=== PATIENT | male | born 1985 | race Caucasian/White ===

== ENCOUNTER 2019-12-12 07:34 | Emergency (ER) | payer BC, MEDICAID ==
[~2019-12-12] VITALS: Ht 172.7 cm; Wt 97.5 kg
[~2019-12-12 07:34] MED LIST: ASPI-862; DEXT1POW2; VIT500TA7
[2019-12-12 07:39] VITALS: BP_SYST 152
[2019-12-12 08:15] LABS: BASOPHILS # (AUTO) 0.1 K/uL (0.0-0.2); BASOPHILS % (AUTO) 0.8 % (0.0-2.0); EOSINOPHILS # (AUTO) 0.2 K/uL (0.0-0.4); EOSINOPHILS % (AUTO) 1.6 % (0.0-4.0); HEMATOCRIT 47.8 % (36-54); HEMOGLOBIN 16.7 g/dL (14.0-18.0); LYMPHOCYTES # (AUTO) 3.4 K/uL (1.0-5.5); LYMPHOCYTES % (AUTO) 36.2 % (20.5-51.5); MEAN CORPUSCULAR HEMOGLOBIN 30 pg (27-31); MEAN CORPUSCULAR HGB CONC 35 % (32-36); MEAN CORPUSCULAR VOLUME 87 fL (79.0-98.0); MONOCYTES # (AUTO) 0.6 K/uL (0.0-1.0); MONOCYTES % (AUTO) 6.4 % (1.7-9.3); NEUTROPHILS # (AUTO) 5.2 K/uL (1.8-7.7); PLATELET COUNT (AUTO) 322 K/uL (130-430); RED BLOOD CELL COUNT(AUTO) 5.48 MIL/uL (4.2-6.2); RED CELL DISTRIBUTION WIDTH 13.2 % (9.0-15.0); WHITE BLOOD COUNT (AUTO) 9.4 K/uL (4.8-10.8)
[2019-12-12 08:27] LABS: ANION GAP 9 (5-15); CHLORIDE 101 mmol/L (98-107); CREATININE 1.43 mg/dL (0.55-1.30); GLUCOSE 125 mg/dL (70-99); POTASSIUM 3.3 mmol/L (3.5-5.1); SODIUM SERUM 135 mmol/L (136-145); UREA NITROGEN, BLOOD 15 mg/dL (8-21)
[2019-12-12 08:33] LABS: ALANINE AMINOTRANSFERASE 52 U/L (12-78); ALBUMIN 4.2 g/dL (3.4-4.8); ASPARTATE AMINOTRANSFERASE 28 U/L (10-37); TOTAL BILIRUBIN 0.9 mg/dL (0.0-1.0); URIC ACID 8.4 mg/dL (2.4-7.0)
[2019-12-12 08:42] LABS: GFR AFRICAN AMERICAN 72 mL/min (>90)
[2019-12-12 08:43] LABS: C-REACTIVE PROTEIN QUANT < 0.2 mg/dL (0-0.5)
[2019-12-12 08:47] LABS: PROTHROMBIN TIME 10.3 SECS (9.5-12.5)
[2019-12-12 09:22] LABS: ERYTHROCYTE SEDIMENTATION RATE 7 MM/HR (0-15)
[2019-12-12 09:52] VITALS: BP_SYST 152
== END 2019-12-12 09:52 | disposition home or self-care (01) ==
LOC: SED 07:34
DX: M25.561 Pain in right knee (principal); Z79.899 Other long term (current) drug therapy; Z79.82 Long term (current) use of aspirin
CPT/HCPCS: 36415; 73564; 80053; 84550-TC; 85025; 85610-TC; 85651-TC; 85730-TC; 86140; 99284

== ENCOUNTER 2020-11-22 09:02 | Emergency (ER) | payer MEDICAID ==
[~2020-11-22] VITALS: Ht 172.7 cm; Wt 86.2 kg
--- NOTE | 2020-11-22 09:05 | NUR ---
Patient to triage for evaluation. Side rails up.
--- NOTE | 2020-11-22 09:06 | NUR ---
ER Dr. Lei at bedside examining patient.
[2020-11-22 09:10] VITALS: BP_SYST 145
[2020-11-22] MEDS ORDERED: PENICILLIN G BENZATHINE 1.2 MMU/2 ML SYR IM ONE (09:15)
[2020-11-22] MEDS ORDERED: DOXY100C5 PO (09:16)
--- NOTE | 2020-11-22 09:30 | NUR ---
urine specimen collected and sent to lab
[2020-11-22 10:08] LABS: BILIRUBIN,URINE NEGATIVE (NEGATIVE); BLOOD, URINE NEGATIVE (NEGATIVE); CLARITY/URINE CLEAR (CLEAR); COLOR,URINE YELLOW (YELLOW); GLUCOSE,URINE NEGATIVE (NEGATIVE); KETONES,URINE NEGATIVE (NEGATIVE); LEUKOCYTE ESTERASE ,URINE NEGATIVE (NEGATIVE); NITRITE, URINE NEGATIVE (NEGATIVE); PH,URINE 5.5 (5.0-8.0); PROTEIN URINE NEGATIVE (NEGATIVE); UROBILINOGEN,URINE 0.2 (0.2-1.0)
--- NOTE | 2020-11-22 10:14 | NUR ---
medicated tolerated well.
[2020-11-22 10:28] VITALS: BP_SYST 145
--- NOTE | 2020-11-22 10:28 | NUR ---
Patient given written and verbal discharge instructions and verbalizes understanding. ER MD discussed with patient the results and treatment provided. Patient in stable condition. ID arm band removed. Rx of doxycyxline hyclate given. Patient educated on pain management and to follow up with PMD. Pain Scale 0. Opportunity for questions provided and answered. Medication side effect fact sheet provided.
== END 2020-11-22 10:28 | disposition home or self-care (01) ==
LOC: SED 09:02
DX: N48.5 Ulcer of penis (principal); Z79.899 Other long term (current) drug therapy
CPT/HCPCS: 36415; 81003; 86592; 87491; 87591; 96372; 99283; J0561

== ENCOUNTER 2021-03-20 13:01 | Emergency (ER) | payer MEDICAID, SELFPAY ==
[~2021-03-20] VITALS: Ht 172.7 cm; Wt 90.7 kg
[~2021-03-20 13:01] MED LIST changes: +DOXY100C5 PO
[2021-03-20 13:30] VITALS: BP_SYST 150
--- NOTE | 2021-03-20 13:30 | NUR ---
Pt. came in with cough, congestion and sore throat X 2 days.
--- NOTE | 2021-03-20 13:30 | NUR ---
Patient to ER tent for evaluation.
--- NOTE | 2021-03-20 16:27 | NUR ---
MARI Perera at bedside examining patient.
[2021-03-20] MEDS ORDERED: P-EP-92 PO (17:00)
[2021-03-20 17:07] VITALS: BP_SYST 139
--- NOTE | 2021-03-20 17:08 | NUR ---
Patient given written and verbal discharge instructions and verbalizes understanding. ER Dr. Joe discussed with patient the results and treatment provided. Patient in stable condition. ID arm band removed. Patient educated on pain management and to follow up with PMD. Pain Scale 0. Opportunity for questions provided and answered.
== END 2021-03-20 17:07 | disposition home or self-care (01) ==
LOC: SED 13:01
DX: J06.9 Acute upper respiratory infection, unspecified (principal); Z20.822 Contact with and (suspected) exposure to COVID-19
CPT/HCPCS: 71045; 86710; 87426; 99284; U0003; 36415

== ENCOUNTER 2021-12-04 14:07 | Emergency (ER) | payer MEDICAID ==
[~2021-12-04] VITALS: Ht 172.7 cm; Wt 99.8 kg
[~2021-12-04 14:07] MED LIST changes: +P-EP-92 PO
[2021-12-04 14:26] VITALS: BP_SYST 163
--- NOTE | 2021-12-04 16:02 | NUR ---
Patient to ER CHAIR to chanell for evaluation.
--- NOTE | 2021-12-04 16:10 | NUR ---
PATIENT BROUGHT IN COMPLAINING OF RIGHT KNEE PAIN AFTER TRIP AND FALL AT [facility] 2 DAYS AGO. PATIENT REPORTS PAIN WITH WALKING. PAIN 5/10
--- NOTE | 2021-12-04 16:38 | NUR ---
ER at bedside examining patient.
[2021-12-04] MEDS ORDERED: NAPR-690 PO (18:02)
[2021-12-04 18:06] VITALS: BP_SYST 132
--- NOTE | 2021-12-04 18:06 | NUR ---
Patient given written and verbal discharge instructions and verbalizes understanding. ER MD discussed with patient the results and treatment provided. Patient in stable condition. ID arm band removed. NO RX given. Patient educated on pain management and to follow up with PMD. Pain Scale 0/10 Opportunity for questions provided and answered.
== END 2021-12-04 18:06 | disposition home or self-care (01) ==
LOC: SED 14:07
DX: S83.91XA Sprain of unspecified site of right knee, initial encounter (principal); F17.200 Nicotine dependence, unspecified, uncomplicated; Z79.899 Other long term (current) drug therapy; W11.XXXA Fall on and from ladder, initial encounter; Y93.89 Activity, other specified; Y92.89 Other specified places as the place of occurrence of the external cause; Y99.8 Other external cause status
CPT/HCPCS: 73564; 99283

== ENCOUNTER 2022-02-22 00:19 | Emergency (ER) | payer MEDICAID ==
[~2022-02-22] VITALS: Ht 172.7 cm; Wt 99.8 kg
[~2022-02-22 00:19] MED LIST changes: +NAPR-690 PO
[2022-02-22 00:30] VITALS: BP_SYST 146
[2022-02-22] MEDS ORDERED: ACETAMINOPHEN 500 MG TABLET ONE ×2 (00:56→01:03)
[2022-02-22] MEDS ORDERED: IBUPROFEN 600 MG TABLET PO ONE (01:00)
[2022-02-22] MEDS ORDERED: ACETAMINOPHEN 500 MG TABLET PO ONE (01:00)
--- NOTE | 2022-02-22 01:20 | NUR ---
ER at bedside examining patient.
--- NOTE | 2022-02-22 01:22 | NUR ---
PT IS BIB SISTER FR HOME C/O R KNEE PAIN. PT IS AA&OX4. AFEBRILE. NAD. C/O R KNEE PAIN. PER PT, HE TOOK 1 BEER TO RELIEVE HIS PAIN. FOR AMBULATORY. PAIN MEDS GIVEN ORDERED. SAFE [facility] ENVIRONMENT PROVIDED.
[2022-02-22] MEDS ORDERED: IBUP-1969 PO (01:35)
--- NOTE | 2022-02-22 01:56 | NUR ---
Patient given written and verbal discharge instructions and verbalizes understanding. ER MD discussed with patient the results and treatment provided. Patient in stable condition. ID arm band removed. PER PT, PT JUST HAD A BEER AND HE WON'T BE DRIVING. HIS SISTER WILL BE DRIVING HIM HOME. Rx of IBUPROFEN given. Patient educated on pain management and to follow up with PMD. Pain Scale 0/10. Opportunity for questions provided and answered. Medication side effect fact sheet provided.
== END 2022-02-22 01:49 | disposition home or self-care (01) ==
LOC: SED 00:19
DX: M25.561 Pain in right knee (principal); I10 Essential (primary) hypertension; F17.200 Nicotine dependence, unspecified, uncomplicated; Z79.899 Other long term (current) drug therapy
CPT/HCPCS: 73564; 99283